=== PATIENT | female | born 1935 | race Caucasian/White ===

== ENCOUNTER → 2016-10-08 | Outpatient (CLI) | payer OTHER, MEDICARE | LOC: FIMAGING 10:41 | PROVIDERS: ATTEND Internal Medicine | DX: S22.31XA Fracture of one rib, right side, initial encounter for closed fracture (principal); R68.83 Chills (without fever); Z95.0 Presence of cardiac pacemaker ==

== ENCOUNTER → 2016-12-25 | Outpatient (CLI) | payer OTHER, MEDICARE | LOC: FIMAGING 08:41 | PROVIDERS: ATTEND Internal Medicine | DX: S22.41XD Multiple fractures of ribs, right side, subsequent encounter for fracture with routine healing (principal); M48.56XA Collapsed vertebra, not elsewhere classified, lumbar region, initial encounter for fracture; M81.0 Age-related osteoporosis without current pathological fracture ==